=== PATIENT | male | born 2000 | race Caucasian/White ===

== ENCOUNTER 2022-02-03 22:51 | Observation (INO) ==
[2022-02-03] MEDS ORDERED: Ondansetron 4 MG/2 ML VIAL IVP PRN (23:03)
[2022-02-04] MEDS: 0.9 % Sodium Chloride 1,000 ML IVC SCH ×2 (01:53→11:19)
[2022-02-04] MEDS: Acetaminophen IV 1,000 MG/100 ML BAG IVPB SCH ×2 (06:01→11:20)
[2022-02-04] MEDS ORDERED: Bupivacaine 0.5%-Epi 1:200,000 50 ML VIAL ONE (07:39)
[2022-02-04] MEDS ORDERED: Piperacillin/Tazobactam 3.375 GM in 0.9 % Sodium Chloride Mini Bag 100 ML IVPB SCH ×2 (08:00→16:00)
[2022-02-04] MEDS ORDERED: *HR* Midazolam HCl 2 MG/2 ML VIAL ONE (08:08)
[2022-02-04] MEDS ORDERED: *HR* Propofol 200 MG/20 ML VIAL IVP ONE (08:08)
[2022-02-04] MEDS ORDERED: *HR* FentaNYL (PF) 100 MCG/2 ML VIAL ONE (08:08)
[2022-02-04] MEDS ORDERED: Ondansetron 4 MG/2 ML VIAL ONE (08:10)
[2022-02-04] MEDS ORDERED: Lidocaine HCL 4 ML Topical Solution (Laryng-O-Jet Kit Sterile Pak) TP ONE (08:10)
[2022-02-04] MEDS ORDERED: Lidocaine -MPF 2% 5 ML VIAL ONE (08:10)
[2022-02-04] MEDS ORDERED: *HR* Rocuronium Bromide 50 MG/5 ML VIAL ONE (08:10)
[2022-02-04] MEDS ORDERED: *HR* HYDROmorphone PF 0.5 MG/0.5 ML SYRINGE IVP PRN ×2 (08:55→11:03)
[2022-02-04] MEDS ORDERED: *HR* FentaNYL (PF) 100 MCG/2 ML VIAL IVP PRN ×2 (08:55→11:03)
[2022-02-04] MEDS ORDERED: Acetaminophen IV 1,000 MG/100 ML BAG IVPB ONE (08:55)
[2022-02-04] MEDS ORDERED: *HR* OxyCODONE Immed Rel 5 MG TABLET PO PRN ×3 (08:55→11:03)
[2022-02-04] MEDS ORDERED: Ketorolac 30 MG/ML VIAL ONE (09:47)
[2022-02-04] MEDS ORDERED: Sugammadex Sodium 200 MG/2 ML VIAL IV ONE (09:47)
[2022-02-04] MEDS ORDERED: *HR* HYDROMORPHONE 2 MG/ML VIAL ONE (09:54)
[2022-02-04 10:43] VITALS: TEMP 97.9
[2022-02-04] MEDS ORDERED: 0.9 % Sodium Chloride 1,000 ML IVC SCH (11:03)
[2022-02-04] MEDS ORDERED: Ondansetron 4 MG/2 ML VIAL IVP PRN (11:03)
[2022-02-04 12:10] VITALS: BP 92/56
[2022-02-04] MEDS ORDERED: Acetaminophen IV 1,000 MG/100 ML BAG IVPB SCH (15:00)
[2022-02-04 15:43] VITALS: PULSE 51; O2SAT 98
== END 2022-02-04 17:35 | disposition home or self-care (01) ==
LOC: 3BNU
PROVIDERS: ADMIT Surgery; ATTEND Surgery